=== PATIENT | male | born 1970 | race Caucasian/White ===

== ENCOUNTER → 2023-04-24 | Outpatient (CLI) | payer OTHER | END | disposition home or self-care (01) | LOC: RADMN 14:38 | PROVIDERS: ATTEND Chiropractor | DX: S62.662A Nondisplaced fracture of distal phalanx of right middle finger, initial encounter for closed fracture (principal); S62.91XA Unspecified fracture of right hand, initial encounter for closed fracture; M19.011 Primary osteoarthritis, right shoulder; M19.012 Primary osteoarthritis, left shoulder; M25.775 Osteophyte, left foot; X58.XXXA Exposure to other specified factors, initial encounter; Y93.89 Activity, other specified; Y92.89 Other specified places as the place of occurrence of the external cause; Y99.8 Other external cause status; M77.32 Calcaneal spur, left foot | CPT/HCPCS: 84403 ==

== ENCOUNTER → 2023-05-17 | Outpatient (CLI) | payer OTHER | END | disposition home or self-care (01) | LOC: RADMN 09:30 | PROVIDERS: ATTEND Chiropractor | DX: M19.071 Primary osteoarthritis, right ankle and foot (principal); M77.31 Calcaneal spur, right foot; I70.8 Atherosclerosis of other arteries | CPT/HCPCS: 73620-TC ==